=== PATIENT | female | born 1985 | race Caucasian/White ===

== ENCOUNTER 2024-11-27 19:20 | Emergency (ER) | payer MEDICAID ==
[~2024-11-27] VITALS: Ht 172.7 cm; Wt 48.4 kg
--- NOTE | 2024-11-27 21:01 | Physician Documentation ---
History of Present Illness ~ General Chief Complaint: Multiple Medical Complaints Stated Complaint: HEADACHE Time Seen by MD: 22:38 History of Present Illness Initial Comments This is a 39-year-old female who presents with concern for all over body pain described as burning and heavier than usual menstrual periods, patient additionally reports that she has been experiencing headaches however currently does not report headache. Date: Nov 27, 2024 Time: 23:13 Additional note by Hilario Kelley DO: I took over the care of this patient from previous physician. I reviewed any previous notes available, obtain my own history, review of systems and physical examination was performed by myself. This is a 40-year-old female who moved to [facility] in January of 2024, who has extensive neurologic history with a "neurologic disorder that she is followed by multiple neurologists, but does not yet have a definitive diagnosis, presents for evaluation of sensation of burning in all of her veins bilateral upper and lower extremity that started couple of days ago. She did report visit to [facility] for evaluation of occipital headache that felt like a cell phone vibrating in my left occipital skull". She received evaluation and was subsequently discharged. She states that shortly after returning home she began experiencing a burning pain. She feels that the pain is located in her veins. No palliating or aggravating factors. She did not attempt to treat it with a any medication. The patient states that she is a vegan and has been so for many years. She has been supplementing herself with a various herbs, supplements, and vitamins. Recently, six months ago, she was told that she was overdosing on vitamin-B and she cut out all vitamin-B from her diet. Incidentally she also reports that today when she picked up has a package from sho[employer], she noticed multiple bruises on the volar surface of bilateral upper extremities. Some how these bruises resolves without any trace at this point. She also reports heavy bleeding during her current menstrual cycle. She does not take any medication because she prefers holistic treatment of all of her symptoms. She denies any headache currently. Denies any other symptoms. She does not smoke, she uses marijuana, does not do drugs, and has not drank in many years. Review of Systems ROS As stated above in the HPI, otherwise all systems are reviewed and negative. Physical Exam Physical Exam Vital Signs: Temperature: 99.7, Source: Temporal, Heart Rate: 126, Respiratory Rate: 17, BP: 138/98, Pulse Oximetry: 98, Weight: 48.400 Physical Exam GENERAL: Awake, alert, oriented, GCS 15, no apparent distress, non-toxic appearing, answers questions, follows commands appropriately. HEENT: Atraumatic, normocephalic, pupils equal, extraocular muscles intact, sclerae anicteric, mucus membranes moist, oropharynx is clear, no stridor. NECK: supple, full active range of motion, trachea midline, no thyromegaly, no lymphadenopathy, no JVD. CARDIOVASCULAR: regular rate/rhythm, no murmurs/gallops/rubs, Pulses are 2+ in all extremities and symmetric. Capillary refill less than 2 seconds. PULMONARY: Nonlabored, good air movement ,no respiratory distress, speaking in full sentences, clear to auscultation bilaterally, no wheezing, no ronchi, no rales, no accessory muscle use. GASTROINTESTINAL: Soft, non-tender, non-distended, normal active bowel sounds, no organomegaly, no pulsatile masses, no CVA tenderness. NEUROLOGIC: Lucid with normal mental status. Normal facial symmetry. Moves all extremities symmetrically and with purpose. No truncal ataxia. Speech is fluid without evidence of dysarthria or aphasia, no focal deficits appreciated. MUSCULOSKELETAL: There is full range of motion of all extremities. There is no joint pain or joint swelling or joint erythema. There is no muscle pain or tenderness or swelling. EXTREMITIES: warm, well-perfused, no cyanosis, no clubbing, no edema, no acute deformities. Skin: warm, dry, no rashes or lesions, no jaundice, no petechiae orpurpura. No ecchymosis. PSYCHIATRIC: Normal affect, normal insight, normal concentration. Focused exam: There is no evidence of bruises on bilateral arms. There is no lymphangitis. No cellulitis. No erythema. Progress Results/Orders Results/Orders Orders - HILARIO KELLEY DO Vitamin B12 (11/27/24 23:09) Culture Blood (11/27/24 23:09) RPR (11/27/24 23:21) Completed Orders - HILARIO KELLEY DO Cbc/Diff (11/27/24 23:09) CK (11/27/24 23:09) ESR (11/27/24 23:09) C-Reactive Protein (11/27/24 23:09) PHOS (11/27/24 23:09) Pt Inr (11/27/24 23:09) PTT (11/27/24 23:09) MG (11/27/24 23:09) CMP (11/27/24 23:09) Ethanol (11/27/24 23:09) Drug Screen, Urine (11/27/24 23:09) Ammonia (11/27/24 23:09) Hcg Serum Ql (11/27/24 23:09) Ua W/Microscopic, Cult If Ind (11/27/24 23:45) Vital Signs 11/27/24 20:19 Temp 99.7 Pulse 126 Resp 17 B/P (MAP) 138/98 Pulse Ox 98 Laboratory Tests Test 11/27/24 23:24 11/27/24 23:36 11/27/24 23:45 White Blood Count 5.5 Red Blood Count 5.23 Hemoglobin 15.7 Hematocrit 46.4 H Mean Corpuscular Volume 88.8 Mean Corpuscular Hemoglobin 30.0 Mean Corpuscular Hemoglobin Concent 33.8 Red Cell Distribution Width 12.6 Platelet Count 252 Mean Platelet Volume 9.6 Neutrophils (%) (Auto) 65.8 Lymphocytes (%) (Auto) 18.7 L Monocytes (%) (Auto) 14.6 H Eosinophils (%) (Auto) 0.1 Basophils (%) (Auto) 0.8 Neutrophils # (Auto) 3.6 Lymphocytes # (Auto) 1.0 L Monocytes # (Auto) 0.8 Eosinophils # (Auto) 0.0 Basophils # (Auto) 0.0 CBC Comment Erythrocyte Sedimentation Rate 3 Prothrombin Time 11.3 INR International Normalized Ratio 1.1 Activated Partial Thromboplast Time 28 Coagulation Comments Sodium Level 136 Potassium Level 3.7 Chloride Level 102 Carbon Dioxide Level 22.6 L Anion Gap 11 Blood Urea Nitrogen 6 L Creatinine 0.86 Estimated GFR/1.73 m2 74 BUN/Creatinine Ratio 7.0 L Glucose Level 106 H Calcium Level 9.2 Phosphorus Level 3.0 Magnesium Level 2.0 Total Bilirubin 0.4 Aspartate Amino Transf (AST/SGOT) 19 Alanine Aminotransferase (ALT/SGPT) 21 Alkaline Phosphatase 103 Ammonia < 10 L Total Creatine Kinase 75 C-Reactive Protein 0.27 Total Protein 8.0 Albumin 4.2 Globulin 3.8 Albumin/Globulin Ratio 1.1 Human Chorionic Gonadotropin, Qual Negative Chemistry Comments Ethyl Alcohol Level < 10 Urine Specimen Description Cln catch midstream Urine Color Yellow Urine Clarity Clear Urine pH 6.0 Urine Specific [place] <=1.005 Urine Protein Negative Urine Glucose (UA) Negative Urine Ketones Trace H Urine Occult Blood Trace-intact Urine Nitrite Negative Urine Bilirubin Negative Urine Urobilinogen 0.2 Urine Leukocyte Esterase Negative Urine RBC 0-2 Urine WBC 0-4 Urine Squamous Epithelial Cells Few Urine Bacteria 1+ Urine Culture Indicated Not ind Volume Urine Centrifuged 10 ml Urine Comment Urine Opiates Screen Negative Urine Methadone Screen Negative Urine Fentanyl Screen Negative Urine Barbiturates Screen Negative Urine Phencyclidine Screen Negative Urine Amphetamines Screen Negative Urine Benzodiazepines Screen Negative Urine Cocaine Screen Negative Urine Cannabinoids Screen Positive Drug Screen Comment Medical Decision Making Findings MSE performed in triage and patient returned to ED lobby by nursing staff to await available ED room Date: Nov 27, 2024 Time: 23:19 Additional note by Hilario Kelley, DO: I took over the care of this patient from previous physician. I reviewed any previous notes available, obtain my own history, review of systems and physical examination was performed by myself. Facility Status: ED Holds, [facility] process The plan was discussed with the patient, who demonstrates clear understanding of the plan and is in agreement with the plan unless otherwise noted in the chart. All questions have been answered, all concerns were addressed unless otherwise documented. I was available throughout their ED stay for frequent reassessment and questions. Differential Diagnoses (considered and possible or likely): [Neuropathic pain, less likely infection, less likely vitamin B12 deficiency, less likely diabetes, dehydration, electrolyte derangement. Supratentorial origin of her symptoms can not be excluded, however it is a diagnosis of exclusion. Less likely drug toxidrome. Unlikely Vikas Mauri's, TEN. Syphilis has been considered.] ??Differential Diagnoses (considered and unlikely, not requiring evaluation currently): [See above] MDM Data Please see HPI for the following: Independent Historians and external Records Review. Historian: [Patient] Independent Historians: ?[Record review] Medication Management: [Reviewed medication list] Social History and determinants: [Reviewed] Please see the body of the note for the following: Any independent interpretat ions of ECG, imaging studies. All vitals signs/haemodynamics, ordered tests were independently reviewed and interpreted by myself. Nursing triage complaint and vitals reviewed, additional nursing notes were reviewed as available and I agree unless otherwise noted or documented in contradiction in the chart Vital Signs: Independently reviewed Labs: Independently interpreted Imaging: Independently interpreted Old Medical Records: Independently reviewed, see HPI for relevant summary and information Pulse Oximetry: [98%] interpreted as [normal on room air] by me Additionally notably showing: [Hemodynamics reviewed. Not febrile, tachycardic, no evidence of respiratory distress or hypotension. No evidence of her hypoxia. Tachycardia improved with rest alone. Laboratory studies reviewed. CBC normal, there is no leukocytosis, no anemia, normal platelets. No neutrophilic predominance. Coagulation panel is unremarkable. Chemistry shows no electrolyte derangement. No acidosis. Normal renal function. Normal glucose. Liver function is normal. Magnesium was normal. Phosphorus normal. Ammonia is not detectable. CK is not elevated decreasing suspicion for rhabdo. CRP is not elevated either. She is not . Urine is nondiagnostic for UTI. Fairly dilute. Toxicology is positive for cannabis as expected, [place] alcohol is negative. B12 levels and syphilis are pending.] Tests considered but not ordered include: [Imaging has been considerably, but does not appear to be necessary and patient declines ionizing radiation] Social Determinants of Health Impact: Patient was evaluated in [facility], or [facility] [place] access to healthcare due to below par ratio of patient to medical providers. [] Comorbid Conditions Impacting Present Evaluation and Care/Treatment: [Unspecified neurologic disorder in the process of being diagnosed of the last several years] Management Discussions with other Healthcare Providers: [None] Treatment and Disposition Medication Management (Given or considered): [Patient declined any pain medication as she prefers to do thinks the natural way" and avoid "pharmaceuticals ]. See EMR for details Consideration for Hospitalization/Escalation/Deescalation of Care: Admission for observation has been considered, [however the patient is able to tolerate p.o., their symptoms are controlled, they are able to rely on oral medications, and their chief complaint/diagnosis can be managed on outpatient basis.] ?ED Course:?[No clinical deterioration. No explanation for her symptoms. Syphilis as still pending.] ?Shared decision making:?[Patient is hemodynamically stable for discharge home with follow with their primary care provider. [ ] Specific and cautious return precautions provided and discussed with full understanding. Any incidental findings were also discussed and follow up recommendations given. [] All questions answered. Patient/family were able to verbalize back return precautions. Patient/family agree to plan. Copies of imaging and laboratory studies were provided.] Code status:?FULL Please see the full Electronic Medical Record for full details of nursing documentation, medications list, other records of complete past medical history and conditions, vital signs, laboratory studies, and any radiologic study interpretations by radiologists. Portions of this note were completed using Is[employer] dictation software and as a result there may exist minor errors in spelling. I have reviewed elements of past family and social history and agree as included in note. Departure Disposition: HOME / SELF CARE / HOMELESS Impression: Primary Impression: Burning sensation of skin Additional Impressions: Bilateral arm pain Bilateral lower extremity pain Tachycardia Condition: Stable Discharge Instructions: Neuropathic Pain Referrals: NO PRIMARY CARE PROVIDER (PCP) Education Educated: Patient Educated regarding: diagnosis, treatment, prognosis Signature Scribe Signature: No scribe Attestation: This note accurately reflects clinical decisions, work performed by myself, DO OLLIE Perdue [facility] Nov 27, 2024 21:01 HILARIO KELLEY DO Nov 27, 2024 23:18
[2024-11-27 23:50] LABS: MEAN PLATELET VOLUME 9.6 FL (7.4-10.4); RED CELL DISTRIBUTION WIDTH 12.6 % (11.5-14.5)
[2024-11-28 00:04] LABS: APTT 28 SECONDS (22-32); INR 1.1 INR
[2024-11-28 00:06] LABS: CREATININE 0.86 MG/DL (0.40-0.90); ETHANOL < 10 MG/DL (<10); PHOSPHORUS 3.0 MG/DL (2.3-4.5); TOTAL CARBON DIOXIDE 22.6 MMOL/L (24-32); eCRCL 68 ML/MIN; eGFR 74 ML/MIN
[2024-11-28 00:16] LABS: LEUKOCYTE ESTERASE ,URINE NEGATIVE (Neg); NITRITES, URINE NEGATIVE (Neg); OCCULT BLOOD,URINE TRACE-INTACT (Neg)
[2024-11-28 00:19] LABS: UA COLLECTION TYPE CLN CATCH MIDSTREAM
[2024-11-28 00:20] LABS: HCG SERUM QL NEGATIVE
[2024-11-28 00:23] LABS: SQUAMOUS EPITHELIAL CELL,UR FEW /LPF (FEW)
[2024-11-28 00:25] LABS: URINE AMPHETAMINE SCREEN NEGATIVE (Neg); URINE BARBITUATE SCREEN NEGATIVE (Neg); URINE BENZODIAZEPINES SCREEN NEGATIVE (Neg); URINE CANNABINOID SCREEN POSITIVE (Neg); URINE COCAINE SCREEN NEGATIVE (Neg); URINE METHADONE SCREEN NEGATIVE (Neg); URINE OPIATE SCREEN NEGATIVE (Neg); URINE PHENCYCLIDINE SCREEN NEGATIVE (Neg)
[2024-11-28 01:15] VITALS: BP 126/82; PULSE 98; RESP 16; TEMP 99.2; O2SAT 98
== END 2024-11-28 01:18 | disposition home or self-care (01) ==
LOC: ER 19:21
DX: R20.8 Other disturbances of skin sensation (principal); M79.601 Pain in right arm; M79.602 Pain in left arm; M79.604 Pain in right leg; M79.605 Pain in left leg; R00.0 Tachycardia, unspecified; R51.9 Headache, unspecified; Z79.899 Other long term (current) drug therapy
CPT/HCPCS: 36415; 80053; 80305; 80320; 81001; 82140; 82550; 82607; 83735; 84100; 84703; 85025; 85610; 85651; 85730; 86140; 86592; 87040; 99283

== ENCOUNTER 2024-11-29 12:35 | Emergency (ER) | payer MEDICAID ==
[~2024-11-29] VITALS: Ht 172.7 cm; Wt 46.8 kg
--- NOTE | 2024-11-29 15:26 | RADIOLOGY REPORT ---
DI CHEST,TWO VIEWS CLINICAL HISTORY: cough COMPARISON: None TECHNIQUE: Frontal and lateral view of the chest was obtained FINDINGS: Lines and Tubes: None Lungs: No focal consolidation. Pleura: No effusion. No pneumothorax. Mild hyperinflation of the lungs. Cardiomediastinal contours: Unremarkable Bones: No acute osseous abnormality. IMPRESSION: No acute cardiopulmonary disease.
[2024-11-29 16:17] LABS: MEAN PLATELET VOLUME 9.3 FL (7.4-10.4); RED CELL DISTRIBUTION WIDTH 12.7 % (11.5-14.5)
[2024-11-29 16:33] LABS: CREATININE 0.89 MG/DL (0.40-0.90); TOTAL CARBON DIOXIDE 25.1 MMOL/L (24-32); eCRCL 63 ML/MIN; eGFR 71 ML/MIN
--- NOTE | 2024-11-29 16:44 | Physician Documentation ---
History of Present Illness ~ Chief Complaint: Shortness of Breath Stated Complaint: SOB/INHALED WATER Time Seen by MD: 15:09 Mode of Arrival: Dropped Off [facility] 39-year-old female presents to the ED with a complaint of pulmonary aspirate after reportedly inhaling 6-8 oz of water today. States she can feel the water in her lungs. Says that the shortness of breath is better when laying down versus when she is sitting up.. States she also has an ongoing neurological deficiency that has been evaluated in the outpatient setting.. Day of Onset: Nov 29, 2024 Review of Systems All Other Systems at this time: Reviewed and Negative ROS As stated above in the HPI, otherwise all systems are reviewed and negative. Physical Exam Vital Signs: Temperature: 98.2, Heart Rate: 109, Respiratory Rate: 20, BP: 125/93, Pulse Oximetry: 100, Weight: 46.750 Oxygen Flow Rate: 0 Physical Exam General: Alert, no apparent distress. Neck: Full range of motion. Respiratory: Lungs clear, no respiratory distress. Chest: No accessory muscle use. Cardiovascular: Regular rate and rhythm, no murmurs. Gastrointestinal: Soft, nontender, nondistended. Bowels sounds present. Neurologic: Oriented x4. Psychiatric: Normal mood and affect. Skin: Normal color, warm and dry. No edema, no ecchymosis. Progress Results/Orders Results/Orders Orders - MIKE OSORIO GRINDER SET UP OPERATOR [facility] Chest,Two Views (11/29/24 15:16) Saline Lock (11/29/24 15:47) Oxygen (11/29/24 15:47) Completed Orders - MIKE OSORIO GRINDER SET UP OPERATOR [facility] Chest,Two Views (11/29/24 15:16) Cbc/Diff (11/29/24 15:47) BMP (11/29/24 15:47) Lacticsepsis (11/29/24 15:47) Vital Signs 11/29/24 11/29/24 11/29/24 12:52 15:40 16:45 Temp 98.2 98.4 Pulse 109 88 Resp 20 20 20 B/P (MAP) 125/93 122/86 Pulse Ox 100 100 O2 Flow Rate 0 Laboratory Tests Test 11/29/24 16:06 White Blood Count 5.2 Red Blood Count 4.85 Hemoglobin 14.8 Hematocrit 42.5 Mean Corpuscular Volume 87.6 Mean Corpuscular Hemoglobin 30.5 Mean Corpuscular Hemoglobin Concent 34.8 Red Cell Distribution Width 12.7 Platelet Count 225 Mean Platelet Volume 9.3 Neutrophils (%) (Auto) 49.3 Lymphocytes (%) (Auto) 40.2 Monocytes (%) (Auto) 9.7 Eosinophils (%) (Auto) 0 Basophils (%) (Auto) 0.8 Neutrophils # (Auto) 2.6 Lymphocytes # (Auto) 2.1 Monocytes # (Auto) 0.5 Eosinophils # (Auto) 0.0 Basophils # (Auto) 0.0 CBC Comment Sodium Level 139 Potassium Level 3.7 Chloride Level 106 Carbon Dioxide Level 25.1 Anion Gap 8 Blood Urea Nitrogen 6 L Creatinine 0.89 Estimated GFR/1.73 m2 71 BUN/Creatinine Ratio 6.7 L Glucose Level 95 Lactic Acid Level 0.9 Calcium Level 9.0 Albumin 3.8 Chemistry Comments Medical Decision Making Findings I did not appreciate any signs of infiltrate or pneumonia in the patient's chest x-ray.. Laboratory values were also unremarkable for any infectious process. I do not see any reason to pursue any further evaluation in the emergency room at this time. She says that she will follow up with her various care providers regarding her neurologic issues which she is being treated for Differential Dx:Considerations: Include: anxiety, asthma, bronchitis, c ardiogenic shock, CHF, COPD, dysrhythmia, hypertension, accelerated, hypertension, essential, hypertension, malignant, hyperventilation, hyponatremia, myocardial infarction, panic attack, pneumonia, pneumonitis, pneumothorax, PSVT, pulmonary embolism, respiratory distress, respiratory failure, sinusitis, upper resp. infection, other Departure Disposition: 01 HOME / SELF CARE / HOMELESS Impression: Primary Impression: Bronchitis Condition: Improved Discharge Instructions: Upper Respiratory Infection, Adult Referrals: NO PRIMARY CARE PROVIDER (PCP) Signature Scribe Signature: h Attestation: Scribed for Mike Osorio Drum Plater by Mike Newell NP . 11/29/24 18:13 MIKE OSORIO NP Nov 29, 2024 16:44
[2024-11-29 16:45] VITALS: BP 122/86; PULSE 88; RESP 20; TEMP 98.4; O2SAT 100
== END 2024-11-29 16:49 | disposition home or self-care (01) ==
LOC: ER 12:36
DX: J40 Bronchitis, not specified as acute or chronic (principal)
CPT/HCPCS: 36415; 71046; 80048; 83605; 85025; 99284

== ENCOUNTER 2024-12-06 12:01 | Emergency (ER) | payer MEDICAID ==
[~2024-12-06] VITALS: Ht 172.7 cm; Wt 47.7 kg
[2024-12-06 12:09] VITALS: BP 125/90; PULSE 115; RESP 18; TEMP 98.4; O2SAT 99
[2024-12-06 14:07] LABS: CREATININE 0.57 MG/DL (0.40-0.90); TOTAL CARBON DIOXIDE 26.4 MMOL/L (24-32); eCRCL 101 ML/MIN; eGFR > 90 ML/MIN
[2024-12-06 14:09] LABS: MEAN PLATELET VOLUME 9.9 FL (7.4-10.4); RED CELL DISTRIBUTION WIDTH 12.4 % (11.5-14.5)
--- NOTE | 2024-12-06 14:09 | Physician Documentation ---
History of Present Illness ~ General Chief Complaint: See Chief Complaint Stated Complaint: RASH Time Seen by MD: 12:27 Source: patient Mode of Arrival: POV Exam Limitations: no limitations History of Present Illness Initial Comments 39-year-old female extremely anxious appearing is concerned that her blood is on fire and that it was a concern to her that she can see the blue of her veins in her anterior forearm last night as well as bulging veins to the back of her hand which she felt like was due to her blood being hot she also describes a increased neuropathic sensation to her skin where the sheets or anything on her body can not have wrinkles because she can feel them and it is painful to her skin. Medication Reconciliation Allergies: Coded Allergies: gentamicin (Verified Allergy, Unknown, 12/06/24) Past Medical History Past Surgical History: noncontributory Alcohol Use: None Drug Use: marijuana Lives In: Home Occupation: unemployed Review of Systems All Other Systems at this time: Reviewed and Negative Integumentary: Reports: see HPI Physical Exam Physical Exam Vital Signs: RN Vital Signs have been reviewed: Yes, Temperature: 98.4, Source: Temporal, Heart Rate: 115, Respiratory Rate: 18, BP: 125/90, Pulse Oximetry: 99, Weight: 47.730 Oxygen Flow Rate: 0 Physical Exam General: Alert, mild distress very anxious appearing HEENT: moist mucous membranes. Neck: Full range of motion. Respiratory:no respiratory distress. Chest: No accessory muscle use. Extremities: Normal range of motion, no deformity. Neurologic: Oriented x4. Psychiatric: Normal mood and affect. Skin: Normal color, warm and dry. No edema, no ecchymosis. No rashes a blue tinge to the anterior forearm that has not had to do that you can see her vein no obvious rashes erythema no bulging vessels she does show me 1 behind her knee a small varicose vein Progress Results/Orders Results/Orders Completed Orders - THANIA ERNST NP Cbc/Diff (12/06/24 13:04) BMP (12/06/24 13:04) Vital Signs 12/06/24 12:09 Temp 98.4 Pulse 115 Resp 18 B/P (MAP) 125/90 Pulse Ox 99 O2 Flow Rate 0 Laboratory Tests Test 12/06/24 13:41 White Blood Count 5.4 Red Blood Count 5.11 Hemoglobin 15.1 Hematocrit 45.3 H Mean Corpuscular Volume 88.6 Mean Corpuscular Hemoglobin 29.4 Mean Corpuscular Hemoglobin Concent 33.2 Red Cell Distribution Width 12.4 Platelet Count 277 Mean Platelet Volume 9.9 Neutrophils (%) (Auto) 41.4 L Lymphocytes (%) (Auto) 51.1 H Monocytes (%) (Auto) 6.1 Eosinophils (%) (Auto) 0.6 Basophils (%) (Auto) 0.8 Neutrophils # (Auto) 2.2 Lymphocytes # (Auto) 2.8 Monocytes # (Auto) 0.3 Eosinophils # (Auto) 0.0 Basophils # (Auto) 0.0 CBC Comment Sodium Level 139 Potassium Level 4.2 Chloride Level 103 Carbon Dioxide Level 26.4 Anion Gap 10 Blood Urea Nitrogen 5 L Creatinine 0.57 Estimated GFR/1.73 m2 > 90 BUN/Creatinine Ratio 8.8 L Glucose Level 91 Calcium Level 9.1 Albumin 3.7 Chemistry Comments Medical Decision Making Findings Patient is very anxious appearing has no formal diagnosis and does not want to take any medications. Patient has had gabapentin in the past and makes her have seizures. Patient's skin sensitivity has been going on for weeks. Patient is very adamant that there is a neurologic disorder not associated with anxiety and that her blood feels boiling. Very concerned although not appearing an hour or the bulging veins to the back of her hand. Patient to follow up with primary care. she has an appointment with primary care tomorrow Departure Time of Disposition: 14:36 Disposition: 01 HOME / SELF CARE / HOMELESS Impression: Primary Impression: Burning sensation of skin Condition: Stable Discharge Instructions: General Discharge Instructions Additional Instructions: Your labs are unremarkable for any significant findings, no infection. kidney function looks good and your blood glucose 91. Without the help of medications and respecting your wishes to try homeopathic and natural ways to reduce symptoms. Nerve type burning pain would be better assessed by Neurology as your going to be in my office tomorrow I will make sure that we find another neurologist contact your youth care worker as you are willing to travel to see someone to evaluate your neurologic symptoms. Lidocaine patches although topical or not systemic but could potentially help with that burning sensation to your forearm. Referrals: NO PRIMARY CARE PROVIDER (PCP) Prescriptions Lidocaine (Lidocaine) 5 % Adh..patch 1 PATCH TOP DAILY for 30 Days, #30 PATCH 0 Refills Prov: THANIA ERNST NP 12/06/24 Education Educated: Patient Educated regarding: diagnosis, treatment, need for follow up Signature Scribe Signature: No Scribe Attestation: The note accurately reflects work and decisions made by me.Thania Ernst - SNAP ATTACHER 12/06/24 14:09 THANIA ERNST NP Dec 06, 2024 14:09
[2024-12-06] MEDS ORDERED: LIDO700A47 TOP (14:39)
== END 2024-12-06 14:54 | disposition home or self-care (01) ==
LOC: ER 12:02
DX: R20.8 Other disturbances of skin sensation (principal); F12.90 Cannabis use, unspecified, uncomplicated; F41.9 Anxiety disorder, unspecified; Z88.8 Allergy status to other drugs, medicaments and biological substances; Z56.0 Unemployment, unspecified
CPT/HCPCS: 80048; 85025; 99283